=== PATIENT | female | born 2000 | race Caucasian/White ===

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

== ENCOUNTER → 2020-06-28 11:52 | Outpatient (CLI) | payer BC, SELFPAY ==
[2020-06-28 13:30] LABS: Basophils # 0.1 K/mm3 (0-0.2); Basophils % 0.5 % (0.1-2.0); Eosinophils # 0.2 K/mm3 (0.0-0.4); Hematocrit 43.6 % (37.0-47.0); Hemoglobin 14.4 g/dL (12.2-16.2); Lymphocytes # 2.8 K/mm3 (0.7-4.5); Lymphocytes % 26.8 % (10-50); Mean Corpuscular HGB Conc 33.1 g/dL (31.8-35.4); Mean Corpuscular Hemoglobin 32.2 pg (27.0-31.2); Mean Corpuscular Volume 97.2 fl (81-99); Mean Platelet Volume 7.2 fl (7.4-10.4); Monocytes # 0.4 K/mm3 (0.1-1.0); Monocytes % 3.9 % (1.7-9.3); Neutrophils % 66.7 % (37.0-80.0); Platelet Count 337 K/mm3 (142-424); Red Blood Count 4.48 M/mm3 (4.20-5.40); Red Cell Distribution Width 12.7 % (11.5-17.5); White Blood Count 10.5 K/mm3 (4.5-13.0)
[2020-06-28 13:42] LABS: Strep Scrn Group A (Rapid) Negative (Negative)
== END ==
PROVIDERS: PCP Physician Assistant; Visit Provider Physician Assistant
DX: Z20.822 Contact with and (suspected) exposure to COVID-19 (principal)
CPT/HCPCS: 85025; 87275; 87276; 87430; U0003

== ENCOUNTER 2021-06-28 17:02 | Emergency (ER) | payer BC, SELFPAY ==
[2021-06-28 17:03] VITALS: BP 120/78; PULSE 85; RESP 16; TEMP 36.7; O2SAT 98; BMI 36.6
--- NOTE | 2021-06-28 17:36 | PC.NURSE ---
MILKA MARTINEZ at to suture
--- NOTE | 2021-06-28 17:38 | HMH.EDGENADL ---
ED Disposition Clinical Impression: Laceration of left thumb Qualifiers: Encounter type: initial encounter Damage to nail status: without damage Foreign body presence: without foreign body Qualified Code(s): S61.012A - Laceration without foreign body of left thumb without damage to nail, initial encounter Disposition: Home, Self-Care Condition on Discharge: Good Instructions: DI for Laceration Repair Referrals: Ni Osman PA [Primary Care Provider] - - Critical Care Critical Care Time: No Attestation: On 06/28/21, the high probability of a clinically significant, sudden or life threatening deterioration of the following system(s) required my full and direct attention, intervention and personal management. The time I documented below is in addition to time spent performing reported procedures but includes the following listed in this critical care notation. Medical Decision Making - Medical Records Medical records reviewed: Yes: I reviewed the patient's medical records. - [place] Inquiry Pt receiving controlled substance: No Vital Signs: 06/28/21 17:03 Temperature 98.1 F Temperature Source Oral Pulse Rate [Radial] 85 Respiratory Rate 16 Blood Pressure [Right Arm] 120/78 Blood Pressure Mean [Right Arm] 92 Blood Pressure Position [Right Arm] Sitting 02 Sat by Pulse Oximetry 98 Oxygen Delivery Method Room Air Orders (Tests/Meds): ED MEDICATIONS Discontinued Medications Generic Name Dose Route Start Last Admin Trade Name Freq PRN Reason Stop Dose Admin Acetaminophen 1,000 mg 06/28/21 17:21 Acetaminophen 500mg Tab PO 06/28/21 17:22 ONCE ONE - Reevaluation(s) Time: 17:41 Reevaluation #1: Patient tolerated procedure well. Given wound care instructions. He is to follow-up with PCP in 48 hours. Given strict return precautions. Verbalized understanding. Medical Decision Narrative: 21-year-old female with a laceration to left thumb. Up-to-date on tetanus. Wound will close well with Dermabond. Thoroughly irrigated. Prepped for procedure. General Adult HPI - General Chief complaint: Wound/Laceration Stated complaint: AO 1640 Cut finger Time Seen by Provider: 06/28/21 17:10 Mode of Arrival: Ambulatory Limitations: No Limitations Description of Symptoms (Recalled from ER Triage Doc. by RN): to ed per pvt car with c/o lac to lt thumb - History of Present Illness HPI narrative: 21-year-old female presented to the emergency department with a laceration to her left thumb. Patient states that she had a small laceration to the distal aspect of her left thumb while she was using a pocket knife. Patient did not sustain any other injuries. She is up-to-date on her tetanus immunization. She had some mild bleeding at the time, however it has stopped since then. Having some minimal pain at the site. Denies any headache or change in vision. No focal weakness. No chest pain or shortness of breath. - Related Data Home Medications Medication Instructions Recorded Confirmed norethindrone 1 mg-ethinyl 1 tab PO tab 12/01/19 05/08/20 estradiol 20 mcg (21)-iron 75 mg (7) tablet Previous Rx's Medication Instructions Recorded fluoxetine 20 mg capsule 20 mg PO DAILY #30 cap 05/08/20 aripiprazole 5 mg tablet 5 mg PO QHS #30 tab 07/10/20 Allergies Allergy/AdvReac Type Severity Reaction Status Date / Time No Known Allergies Allergy Verified 05/08/20 11:[address] [facility] History - Hepatitis A Screen Drug use history?: No High risk sexual behaviors?: No History of sexually transmitted infection?: No Currently employed?: No Childcare worker?: No Do you have indoor plumbing?: Yes Do you have electricity?: Yes Attestation statement:: This patient has been screened for Hepatitis A risk factors. I have reviewed the patient's past medical history: Yes - Social History Smoking Status: Never smoker Alcohol Intake: current Alcohol Intake Frequency:: holidays
[2021-06-28 18:58] VITALS: BP 126/74; PULSE 78; RESP 16; TEMP 36.6; O2SAT 98
== END 2021-06-28 19:00 | disposition home or self-care (01) ==
PROVIDERS: Emergency Provider Emergency Medicine; PCP Physician Assistant
DX: S61.012A Laceration without foreign body of left thumb without damage to nail, initial encounter (principal); Z79.899 Other long term (current) drug therapy
CPT/HCPCS: 12001; 99282